=== PATIENT | male | born 1975 | race Caucasian/White ===

== ENCOUNTER 2021-09-04 08:02 | Outpatient (CLI) | payer MEDICAID, SELFPAY ==
[2021-09-04 11:25] LABS: Cholesterol* 192 mg/dL (90-199); HDL Cholesterol* 43 mg/dL (>=40); LDL Cholesterol Calculated 109 mg/dL (<100); Triglycerides* 202 mg/dL (40-149)
[2021-09-05 10:23] LABS: Glucose* 96 mg/dL (60-115)
== END 2021-09-04 08:03 | disposition home or self-care (01) ==
PROVIDERS: PCP Family Medicine; Visit Provider Family Medicine
DX: Z00.00 Encounter for general adult medical examination without abnormal findings (principal); Z13.1 Encounter for screening for diabetes mellitus; Z13.6 Encounter for screening for cardiovascular disorders
CPT/HCPCS: 80061; 82947

== ENCOUNTER 2022-09-03 07:35 | Outpatient (CLI) | payer MEDICAID, SELFPAY | END 2022-09-03 07:36 | disposition home or self-care (01) | LOC: NFLDREF 09-04 10:44 | PROVIDERS: PCP Family Medicine; Referring Provider Family Medicine; Visit Provider Family Medicine | DX: Z79.01 Long term (current) use of anticoagulants (principal); E78.5 Hyperlipidemia, unspecified | CPT/HCPCS: 80053; 80061 ==

== ENCOUNTER 2022-09-24 07:57 | Outpatient (CLI) | payer MEDICAID, SELFPAY ==
--- NOTE | 2022-09-24 09:49 | W.ANESCHARGE ---
Anesthesia Charges Start Date/Time Anesthesia Start Date: 09/24/22 Anesthesia Start Time: 09:20 Stop Date/Time Anesthesia Stop Date: 09/24/22 Anesthesia Stop Time: 09:46
== END 2022-09-24 07:58 | disposition home or self-care (01) ==
LOC: OP CLINIC 07:57
PROVIDERS: PCP Family Medicine; Visit Provider Surgery
DX: Z12.11 Encounter for screening for malignant neoplasm of colon (principal); K63.5 Polyp of colon
CPT/HCPCS: 45385; 811; 88305; J2704

== ENCOUNTER 2022-11-07 10:45 | Outpatient (CLI) | payer MEDICAID, SELFPAY | END 2022-11-07 10:46 | disposition home or self-care (01) | LOC: NFLDREF 11-08 08:49 | PROVIDERS: PCP Family Medicine; Referring Provider Family Medicine; Visit Provider Family Medicine | DX: Z79.01 Long term (current) use of anticoagulants (principal) | CPT/HCPCS: 85610 ==

== ENCOUNTER 2022-11-27 10:40 | Outpatient (CLI) | payer MEDICAID, SELFPAY | END 2022-11-27 10:41 | disposition home or self-care (01) | LOC: NFLDREF 11-28 08:57 | PROVIDERS: PCP Family Medicine; Referring Provider Family Medicine; Visit Provider Family Medicine | DX: Z79.01 Long term (current) use of anticoagulants (principal) | CPT/HCPCS: 85610 ==

== ENCOUNTER 2023-01-30 13:15 | Outpatient (CLI) | payer MEDICAID, SELFPAY | END 2023-01-30 13:16 | disposition home or self-care (01) | LOC: NFLDREF 01-31 11:13 | PROVIDERS: PCP Family Medicine; Referring Provider Family Medicine; Visit Provider Family Medicine | DX: Z79.01 Long term (current) use of anticoagulants (principal) | CPT/HCPCS: 85610 ==

== ENCOUNTER 2023-05-07 11:26 | Outpatient (CLI) | payer MEDICAID, SELFPAY | END 2023-05-07 11:27 | disposition home or self-care (01) | LOC: NFLDREF 05-09 07:04 | PROVIDERS: PCP Family Medicine; Referring Provider Family Medicine; Visit Provider Family Medicine | DX: Z51.81 Encounter for therapeutic drug level monitoring (principal); Z79.01 Long term (current) use of anticoagulants | CPT/HCPCS: 85610 ==

== ENCOUNTER 2023-07-04 10:52 | Outpatient (CLI) | payer MEDICAID, SELFPAY | END 2023-07-04 10:53 | disposition home or self-care (01) | LOC: NFLDREF 07-22 08:13 | PROVIDERS: PCP Family Medicine; Referring Provider Family Medicine; Visit Provider Family Medicine | DX: Z79.01 Long term (current) use of anticoagulants (principal) | CPT/HCPCS: 85610 ==

== ENCOUNTER 2024-07-13 11:42 | Outpatient (CLI) | payer MEDICAID, SELFPAY | END 2024-07-13 11:43 | disposition home or self-care (01) | LOC: NFLDREF 07-16 08:46 | PROVIDERS: PCP Family Medicine; Referring Provider Family Medicine; Visit Provider Family Medicine | DX: Z79.01 Long term (current) use of anticoagulants (principal); Z86.718 Personal history of other venous thrombosis and embolism | CPT/HCPCS: 85610 ==